=== PATIENT | female | born 1990 | race Caucasian/White ===

== ENCOUNTER 2022-05-23 11:39 | Outpatient (CLI) | payer OTHER, SELFPAY ==
[2022-05-23 18:10] LABS: Vitamin D 25 Hydroxy* 30 ng/mL (30-80)
== END 2022-05-23 11:40 | disposition home or self-care (01) ==
PROVIDERS: Visit Provider Obstetrics & Gynecology
DX: R53.83 Other fatigue (principal); N91.2 Amenorrhea, unspecified
CPT/HCPCS: 82306; 82652; 84443

== ENCOUNTER 2022-11-13 15:00 | Outpatient (CLI) | payer OTHER, SELFPAY | END 2022-11-13 15:01 | disposition home or self-care (01) | LOC: NFLDREF 11-17 21:57 | PROVIDERS: Visit Provider Dermatology | DX: M32.9 Systemic lupus erythematosus, unspecified (principal) | CPT/HCPCS: 86039; 86225 ==

== ENCOUNTER 2023-02-16 10:33 | Outpatient (CLI) | payer OTHER, SELFPAY ==
--- NOTE | 2023-02-16 10:45 | CRLHL7_ITS ---
For Patients: As a result of the Cures Act, medical imaging exams and procedure reports are released immediately into your electronic medical record. You may view this report before your referring provider. If you have questions, please contact your health care provider. RIGHT DIAGNOSTIC MAMMOGRAM WITH COMPUTER-AIDED DETECTION AND TOMOSYNTHESIS RIGHT BREAST ULTRASOUND CLINICAL HISTORY: RIGHT breast pain. COMPARISON: None. TECHNIQUE: Digital RIGHT mammogram in 2 projections. Computer-aided detection and tomosynthesis were used. Real-time ultrasound imaging of RIGHT breast with imaging documentation. BREAST COMPOSITION: There are scattered areas of fibroglandular density FINDINGS: 3D CC/MLO RIGHT breast mammogram images submitted. No suspicious masses or architectural distortion. No adenopathy or suspicious calcifications. Targeted RIGHT breast ultrasound performed in the periareolar regions secondary to discharged. Normal tissues are present. Similarly, targeted ultrasound performed at 4, 5 and 6 o`clock RIGHT breast 4 cm from the nipple in the area of pain. Normal tissues are present. No fibrocystic changes or masses. IMPRESSION: No evidence of malignancy or fibrocystic change. Negative RIGHT breast mammogram and targeted RIGHT breast ultrasound. RECOMMENDATIONS: Clinical follow-up. Age appropriate screening mammography. BI-RADS Category 2: Benign Results and recommendations discussed with the patient. A lay language report of this examination will be provided to the patient. Dictated by: Gerhard Sosa MD @02/16/2023 12:27:49 PM/amrita NATALIE/Dictated by: Gerhard Sosa MD @ 02/16/2023 12:30:00 PM (Electronically Signed)
--- NOTE | 2023-02-16 11:15 | CRLHL7_ITS ---
For Patients: As a result of the Century Cures Act, medical imaging exams and procedure reports are released immediately into your electronic medical record. You may view this report before your referring provider. If you have questions, please contact your health care provider. PLEASE SEE RIGHT DIAGNOSTIC MAMMOGRAM OF SAME DAY. CRL:amrita NATALIE/Dictated by: Gerhard Sosa MD @ 02/16/2023 12:27:00 PM (Electronically Signed)
== END 2023-02-16 10:34 | disposition home or self-care (01) ==
LOC: MAMMO 10:33
PROVIDERS: Visit Provider Obstetrics & Gynecology
DX: N64.4 Mastodynia (principal)
CPT/HCPCS: 76642; 77065; G0279

== ENCOUNTER 2024-01-18 19:14 | Outpatient (CLI) | payer OTHER, SELFPAY | END 2024-01-18 19:15 | disposition home or self-care (01) | LOC: NFLDREF 01-21 07:41 | PROVIDERS: Visit Provider Physician Assistant | DX: N39.0 Urinary tract infection, site not specified (principal) | CPT/HCPCS: 87086; 87186 ==

== ENCOUNTER 2024-04-15 10:07 | Outpatient (CLI) | payer OTHER, SELFPAY ==
[2024-04-15 14:52] LABS: Chlamydia DNA Amplified* NOT DETECTED (No Detected); GC DNA Amplified* NOT DETECTED (No Detected)
== END 2024-04-15 10:08 | disposition home or self-care (01) ==
PROVIDERS: Visit Provider Obstetrics & Gynecology
DX: Z34.91 Encounter for supervision of normal pregnancy, unspecified, first trimester (principal); Z3A.09 9 weeks gestation of pregnancy
CPT/HCPCS: 76817; 82565; 82570; 84156; 84450; 84460; 84550; 86235; 86592; 86703; 86704; 86706; 86762; 86787; 86803; 86850; 86900; 86901; 87086; 87340; 87491; 87591

== ENCOUNTER 2024-04-19 01:00 | Outpatient (CLI) | payer OTHER, SELFPAY | END 2024-04-19 01:01 | disposition home or self-care (01) | LOC: NFLDREF 04-23 06:29 | PROVIDERS: Visit Provider Obstetrics & Gynecology | DX: Z34.01 Encounter for supervision of normal first pregnancy, first trimester (principal) | CPT/HCPCS: 82570; 84156 ==

== ENCOUNTER 2024-06-15 08:59 | Outpatient (CLI) | payer OTHER, SELFPAY | END 2024-06-15 09:00 | disposition home or self-care (01) | LOC: US 09:00 | PROVIDERS: Visit Provider Obstetrics & Gynecology | DX: O09.522 Supervision of elderly multigravida, second trimester (principal); Z3A.18 18 weeks gestation of pregnancy | CPT/HCPCS: 76811 ==

== ENCOUNTER 2024-07-08 12:44 | Outpatient (CLI) | payer OTHER, SELFPAY | END 2024-07-08 12:45 | disposition home or self-care (01) | PROVIDERS: Visit Provider Internal Medicine Nephrology | DX: R80.9 Proteinuria, unspecified (principal) | CPT/HCPCS: 82570; 84156 ==

== ENCOUNTER 2024-08-26 10:14 | Outpatient (CLI) | payer BC, SELFPAY | END 2024-08-26 10:15 | disposition home or self-care (01) | PROVIDERS: Visit Provider Obstetrics & Gynecology | DX: O26.893 Other specified pregnancy related conditions, third trimester (principal); R80.9 Proteinuria, unspecified; Z67.91 Unspecified blood type, Rh negative; Z87.59 Personal history of other complications of pregnancy, childbirth and the puerperium; Z3A.28 28 weeks gestation of pregnancy | CPT/HCPCS: 82565; 82570; 84156; 84450; 84460; 84520; 86592; 86850; J2791 ==

== ENCOUNTER 2024-08-29 17:28 | Outpatient (CLI) | payer BC, SELFPAY ==
--- NOTE | 2024-08-29 17:30 | CRLHL7_ITS ---
For Patients: As a result of the Century Cures Act, medical imaging exams and procedure reports are released immediately into your electronic medical record. You may view this report before your referring provider. If you have questions, please contact your health care provider. INDICATION: Right upper quadrant abdomen pain. TECHNIQUE: Ultrasound abdomen limited. Sonographic images of the right upper quadrant were obtained using holguin-scale and color Doppler images. COMPARISON: None. FINDINGS: Liver: Normal in size and echotexture. No suspicious masses. No intrahepatic biliary dilatation. Gallbladder: No stones or sludge. Normal wall thickness. No pericholecystic fluid. Common bile duct: 3 mm. Pancreas: Unremarkable. Right kidney: Normal in size. Normal echotexture and cortex. No suspicious masses, stones, or hydronephrosis. Vasculature: Proximal abdominal aorta and IVC are unremarkable. IMPRESSION: Unremarkable right upper quadrant ultrasound. Dictated by Scar Goodwin MD @ 08/30/2024 7:34:09 AM (Electronically Signed)
== END 2024-08-29 17:29 | disposition home or self-care (01) ==
PROVIDERS: Visit Provider Obstetrics & Gynecology
DX: R10.11 Right upper quadrant pain (principal)
CPT/HCPCS: 76705

== ENCOUNTER 2024-08-30 09:20 | Outpatient (CLI) | payer BC, SELFPAY | END 2024-08-30 09:21 | disposition home or self-care (01) | LOC: NFLDREF 08-31 02:28 | PROVIDERS: Visit Provider Obstetrics & Gynecology | DX: R80.9 Proteinuria, unspecified (principal) | CPT/HCPCS: 82570; 84156 ==

== ENCOUNTER 2024-09-19 09:05 | Outpatient (CLI) | payer BC, SELFPAY ==
--- NOTE | 2024-09-19 09:15 | CRLHL7_ITS ---
For Patients: As a result of the Century Cures Act, medical imaging exams and procedure reports are released immediately into your electronic medical record. You may view this report before your referring provider. If you have questions, please contact your health care provider. OB ULTRASOUND FOLLOWUP LIMITED, 09/19/2024 CLINICAL HISTORY: Obesity. COMPARISON: 06/15/2024. TECHNIQUE: Transabdominal OB ultrasound. Real time holguin scale imaging of the fetus was performed. FINDINGS: CHINTAN by LMP: 11/13/2024. GA: 32 weeks 1 day. Gestation: Single. Cervix: Not visualized. Positioning: Vertex. Amniotic Fluid: 5.8 cm. Placenta: TA. Placenta Position: Anterior. Dopplers: Heart Rate: 135 bpm. Biometry: BPD: 8.7 cm, 33 weeks 5 days. >97% HC: 31.0 cm, 34 weeks 4 days. 78% AC: 30.0 cm, 34 weeks 0 days. 92% FL: 6.2 cm, 32 weeks 2 days. 39% EFW: 2241 grams, 4 lb 15 oz. Age by this US: 34 weeks 0 days. CHINTAN by this US: 10/31/2024. Percentile by CHINTAN: 85% IMPRESSION: 1. Sonographic gestational age 34 weeks 0 days and sonographic due date 10/31/2024. Sonographic age is 13 days ahead of the clinical age. 2. Estimated weight 85th percentile. Abdominal circumference 82nd percentile. BPD greater than 97th percentile. Gerhard Sosa M.D. Diagnostic Radiologist [email or web address] Transcribed: 3:46 pm DW/Dictated by: Gerhard Sosa MD @ 09/19/2024 3:20:00 PM (Electronically Signed)
== END 2024-09-19 09:06 | disposition home or self-care (01) ==
LOC: US 09:06
PROVIDERS: Visit Provider Obstetrics & Gynecology
DX: O99.213 Obesity complicating pregnancy, third trimester (principal); O36.63X0 Maternal care for excessive fetal growth, third trimester, not applicable or unspecified; Z3A.34 34 weeks gestation of pregnancy
CPT/HCPCS: 76816

== ENCOUNTER 2024-10-04 11:06 | Outpatient (CLI) | payer BC, SELFPAY | END 2024-10-04 11:07 | disposition home or self-care (01) | PROVIDERS: Visit Provider Obstetrics & Gynecology | DX: Z34.93 Encounter for supervision of normal pregnancy, unspecified, third trimester (principal); Z3A.34 34 weeks gestation of pregnancy | CPT/HCPCS: 82565; 82570; 84156; 84450; 84460 ==

== ENCOUNTER 2024-10-13 08:09 | Outpatient (CLI) | payer BC, SELFPAY ==
--- NOTE | 2024-10-13 08:15 | CRLHL7_ITS ---
For Patients: As a result of the Century Cures Act, medical imaging exams and procedure reports are released immediately into your electronic medical record. You may view this report before your referring provider. If you have questions, please contact your health care provider. OB ULTRASOUND BIOPHYSICAL PROFILE LMP: 02/06/2025. CHINTAN by LMP: 11/13/2024. GA: 35 w, 4 d. Single. Comparison: 09/19/2024, 06/15/2024. INDICATION: Preclampsia. TECHNIQUE: Real time holguin scale imaging of the fetus was performed. Transabdominal. CERVIX: Not visible. POSITIONING: Vertex. AMNIOTIC FLUID: 3.2 cm. SDP (N: greater than 2 x 1 cm) BIOPHYSICAL PROFILE: Total score: 2. Gross body movements: 2. tone: 2. Respiratory activity: 2. Amniotic fluid: 3.2. (SDP N: greater than 2 x 1 cm) PLACENTA: PLACENTA POSITION: Anterior. DOPPLER: heart rate: 142 bpm. BIOMETRY: BPD: 9.5 cm. 38 w, 4 d, >97 percent. HC: 33.3 cm. 38 w, 0 d, 77 percent. AC: 33.7 cm. 37 w, 4 d, 96 percent. FL: 7.0 cm. 35 w, 0 d, 49 percent. FL/AC ratio: 20.7 percent. HC/AC ratio: 1.0. EFW: 3179 g. Weight: 7 lbs, 0 oz. age by this US: 37 w, 3 d. CHINTAN by this US: 10/31/2024. Percentile by CHINTAN: 90.8 percent. IMPRESSION: 1. Normal biophysical profile 03/03. 2. Sonographic gestational age 37 weeks 3 days and sonographic due date 10/31/2024. Sonographic age 13 days ahead of the clinical age. 3. Estimated weight 91st percentile. Abdominal circumference 96th percentile. Biparietal diameter greater than 97th percentile. Gerhard Sosa M.D. Diagnostic Radiologist [email or web address] MITRA/tram JR/Dictated by: Gerhard Sosa MD @ 10/13/2024 9:26:00 AM (Electronically Signed)
== END 2024-10-13 08:10 | disposition home or self-care (01) ==
LOC: US 08:10
PROVIDERS: Visit Provider Obstetrics & Gynecology
DX: O14.93 Unspecified pre-eclampsia, third trimester (principal); O36.63X0 Maternal care for excessive fetal growth, third trimester, not applicable or unspecified; Z3A.35 35 weeks gestation of pregnancy; Z3A.37 37 weeks gestation of pregnancy
CPT/HCPCS: 76816; 76819; 82565; 84450; 84460; 84520

== ENCOUNTER 2024-10-13 09:47 | Outpatient (CLI) | payer BC, SELFPAY ==
[2024-10-14 10:59] LABS: Strep B DNA Probe Negative (Negative)
[2024-10-14 11:07] LABS: Strep B Susceptibility Needed? No
== END 2024-10-13 09:48 | disposition home or self-care (01) ==
LOC: NFLDREF 09:47
PROVIDERS: Visit Provider Obstetrics & Gynecology
DX: Z34.93 Encounter for supervision of normal pregnancy, unspecified, third trimester (principal); Z3A.35 35 weeks gestation of pregnancy
CPT/HCPCS: 82565; 84450; 84460; 84520; 87081; 87653

== ENCOUNTER 2024-10-20 13:33 | Outpatient (CLI) | payer BC, SELFPAY ==
--- NOTE | 2024-10-20 13:45 | CRLHL7_ITS ---
For Patients: As a result of the Century Cures Act, medical imaging exams and procedure reports are released immediately into your electronic medical record. You may view this report before your referring provider. If you have questions, please contact your health care provider. INDICATION: Preeclampsia TECHNIQUE: Ultrasound OB pelvis transabdominal. Real-time holguin-scale imaging of the fetus was performed with color Doppler and spectral Doppler analysis of the umbilical artery without stress testing. COMPARISON: 10/13/2024 FINDINGS: Sonographic imaging demonstrates a single living intrauterine gestation. Fetus demonstrates a regular cardiac rate of 131 beats per minute. Fetus has a cephalic orientation. The placenta lies anterior. Amniotic fluid volume appears normal with a MVP of 4.0 cm. breathing movements, motion, and tone were all observed. IMPRESSION: Single viable intrauterine with a biophysical profile 03/03. Dictated by Viktor Hollingsworth MD @ 10/20/2024 2:30:47 PM (Electronically Signed)
== END 2024-10-20 13:34 | disposition home or self-care (01) ==
LOC: US 13:33
PROVIDERS: Visit Provider Obstetrics & Gynecology
DX: O14.93 Unspecified pre-eclampsia, third trimester (principal)
CPT/HCPCS: 76819; 82565; 84450; 84460

== ENCOUNTER 2024-10-23 07:46 | Inpatient (IN) | payer BC, SELFPAY ==
[2024-10-23] VITALS (18 sets, daily range): BP systolic 108–127; BP diastolic 60–80; PULSE 71–83; RESP 14–16; TEMP 36.6–36.9; O2SAT 75–99; BMI 44.3
[2024-10-23] MEDS: LACTATED RINGERS 1000 ML 1,000 ML 500 ML IV (08:15)
[2024-10-23] MEDS: LACTATED RINGERS 1000 ML 1,000 ML 1200 ML IV (08:15)
[2024-10-23 08:34] LABS: Basophils Absolute Auto 0.03 K/uL (0.00-0.30); Basophils Percent Auto 0.3 % (0.0-3.0); Eosinophils Absolute Auto 0.11 K/uL (0.00-0.50); Eosinophils Percent Auto 1.2 % (0.0-7.0); Hematocrit 35.8 % (33.0-51.0); Immature Granulocytes Abs Auto 0.09 K/uL (0.00-0.30); Lymphocytes Absolute Auto 1.82 K/uL (0.90-2.90); Lymphocytes Percent Auto 20.5 % (20-44); Mean Corpuscular HGB Conc 34 gm/dL (32-36); Mean Corpuscular Hemoglobin 28 pg (26-34); Mean Corpuscular Volume 83 fL (80-100); Monocytes Percent Auto 8.7 % (0.0-11.0); Neutrophils Absolute Auto 6.06 K/uL (1.7-7.0); Neutrophils Percent Auto 68.3 % (42.0-72.0); Platelet Count* 168 K/uL (140-440); RDW Coefficient of Variation % 15.3 % (11.5-15.5); White Blood Count* 8.88 K/uL (4.50-11.00)
[2024-10-23 08:36] LABS: Slide Review Reflex No
[2024-10-23 08:46] LABS: Alanine Aminotransferase* 23 U/L (4-35); Aspartate Amino Transferase* 34 U/L (12-35); Blood Urea Nitrogen* 7 mg/dL (5-24); Creatinine* 0.5 mg/dL (0.5-1.5); Est. Creatinine Clearance* 135.61; Estimated Glomerular Filt Rate 125 ml/min
--- NOTE | 2024-10-23 09:35 | P.LDBA_ITS ---
Subjective History of Present Illness Time Seen by Provider: 08:30 Date Seen: 10/23/24 Narrative: Patient is being admitted to Labor and Delivery for scheduled delivery for pre-eclampsia without severe features. She is a 34 year old at 37.0 weeks gestation. Her full history and physical was dictated by Dr. SEGUNDO on 10/13/24. Please see this for details. Denies Ctx, LOF, vaginal bleeding or abnormal vaginal discharge. Specific Issues/Plans G 2 P 1-0-0-1 Partner: Mickey Hidalgo Son: Awais Johnso or Awais Baby: Boy H&P: CGM 10/13/24 #Preeclampsia w/o severe features * 10/06/2024: Called triage to report 2 BP's 143/72, 140/70, otherwise 130s/80s. Had previous Bp's on 10/03/24 at home 142-148/72-82. No SALCEDO, visual disturbance, or RUQ. Trace edema. * 10/04/2024: hgb 11.1, plts 174, AST 23, ALT 17, Creat 0.5. Urine P/C 0.89 (Baseline urine P/C: 0.13) * testing sheet completed on 10/06/24: twice weekly testing bpp alternating w/ NST. * Completed a new surgery request to move her RLTCS to 10/23/24 @ 37w0d: it is a Thursday with Dr. Goodson. # Advanced maternal age * Level 2 US: Normal anatomy * Considering NIPT: low risk # BMI 38.4 at 1st visit * Hemoglobin A1c 5.4% # Previous elective for suspected macrosomia at 38 weeks, 2 days gestation. 9 lb, 3 oz * Plans for repeat # Preeclampsia at 38 weeks, 2 days gestation in her 1st . Progressed to severe preeclampsia . * Baseline labs: Entirely normal, urine protein/creatinine ratio 0.13 on 04/15/2024 * 306 mg of protein on 24 hour urine at 10 weeks' gestation (04/20) * Baby aspirin beginning 12 weeks, increase to twice daily per MFM * Nephrology visit 06/14/2024: Repeat 24 hour urine to be collected June, ordered by Nephrology. She is to monitor blood pressure at home on a weekly basis, with goals less than 140/90. * Repeat 24 hour urine 08/30: 506 mg. # Blood type O negative. * Mickey Hidalgo 02/20/1987 interested in blood type testing; consent given 04/15 * Rh expectant partner ordered 06/30/24: Rh+ * Received Rhogam 08/26/24 # History of macrosomia. No hx of diabetes; tested X 3 last # Butterfly rash, thought secondary to photosensitivity by chemical cell changer. MAX negative. * Treated with hydroxychloroquine * SSA and SSB antibodies tested 04/15: negative #Persistent RUQ abdominal pain Abdominal US ordered 08/26/24 #Anemia-resolved 10.8mg/dL at 28 weeks Add iron supplements re evaluate at 34 weeks 34wk hgb: 11.2 Imagin06/15/2024: Level 2. Anterior placenta without previa, three-vessel cord, SDP 5.1, EFW 91.9%, AC 89.7%, normal anatomy. 09/19/24: Vtx. SDP 5.8cm. BPD >97%, HC 78%, AC 92%, FL 39%, EFW 85% 10/13/24: Vertex presentation, single deepest pocket of amniotic fluid 3.2 cm, BPD: More than the 97th percentile, HC: 77th percentile, AC: 96 percentile, FL: 49th percentile. EFW: 90.8 percentile. BPP 03/03. Vaccinations: COVID: 05/06/24 Flu: 05/06/24 Tdap: 09/13/23 RSV: n/a RHOGAM: given 08/26/24 32 week mental health: 09/13 34 week HGB: 11.2 36 week GBS: Last pap: Negative for intraepithelial lesion, HPV 05/25/20 OB - Problem Based A/P Additional Plan (1) Pre-eclampsia during in third trimester, antepartum: Status: Acute (2) Advanced maternal age (AMA) in : Status: Acute (3) Obesity affecting : Status: Acute (4) BMI 40.0-44.9, adult: Status: Acute Plan CS Consent The patient was consented for section and blood. She is having a delivery for the indication of: Preeclampsia without severe features. Previous delivery x1 She understands that the four main categories of risk include pain, bleeding, infection, and damage to surrounding structures. Intraoperative pain will be manage with spinal anesthesia or epidural anesthesia. If that those are not effective or not appropriate for the clinical situation, general anesthesia will be administered. Immediately postop, TAP block will be performed. Throughout her recovery course, she will have on PO pain medications such as ibuprofen, Tylenol, and oxycodone. Regarding infection, she understands that we will be delivering appropriate antibiotics, however that the risk of infection following section still is approximately 5-7%. She understands that though the risk is very low that there is always a risk of damage to the bladder, uterus, ovaries, fallopian tubes, bowels, ureters, or even the fetus (0.1-0.3%). She understands that most injuries can be addressed at the time of surgery, however, such an injury may require additional surgeries to fix. She understands that a section carries a risk of bleeding (1-5% risk of hemorrhage), and that while this bleeding can be addressed with multiple medical and surgical modalities (including hysterectomy), that there is the possibility of needing a blood transfusion (0.5-3%). She understands that a section does increase risks for future pregnancies and deliveries including, but not limited to, the risk of uterine rupture or placenta accreta. Lastly, VTE after delivery rate is around 0.1-0.4%. Will decrease this risk with SCD use, early ambulation, and thromboprophylaxis medication if needed. We also reviewed postoperative care, recovery, and restrictions. All questions answered to patient's satisfaction and the best of my abilities. Consent form signed and will proceed with delivery via section. Hgb/plt today: 12.0/168 - T&S/antibody: O negative/positive. Antibody identification is pending OB Exam Physical Exam Narrative: Physical exam: General: No acute distress Psych: Alert and oriented x3, full affect HEENT: Normocephalic, atraumatic Lungs: Unlabored breathing Neuro: No focal deficit. Mentating appropriately Abdominal exam: Appropriately gravid. Soft, nontender, nondistended. INCISION: Well-healed Pfannenstiel incision Pelvic exam: Deferred
[2024-10-23] MEDS: CEFAZOLIN 1 GM inj 3 GM IVP (09:41)
[2024-10-23] MEDS: miSOPROStoL 800 MCG/4 TABLET PR (10:50)
--- NOTE | 2024-10-23 11:14 | P.ANES_ITS ---
Anesthesia Charges Start Date/Time Anesthesia Start Date: 10/23/24 Anesthesia Start Time: 09:08 Stop Date/Time Anesthesia Stop Date: 10/23/24 Anesthesia Stop Time: 11:10 Coding CPT Codes CPT Codes: ANESTH CS DELIVERY - 56269 ([id number]) QZ - COMMUNITY LIVING INSTRUCTOR SVC W/O CRIMINAL JUSTICE TEACHER BY , P3 - PATIENT W/SEVERE SYS DISEASE
--- NOTE | 2024-10-23 11:14 | W.ANESCHARGE ---
Anesthesia Charges Start Date/Time Anesthesia Start Date: 10/23/24 Anesthesia Start Time: 09:08 Stop Date/Time Anesthesia Stop Date: 10/23/24 Anesthesia Stop Time: 11:10 Coding CPT Codes CPT Codes: ANESTH CS DELIVERY - 49317 ([id number]) QZ - FLOORMAN SVC W/O MANUSCRIPT READER BY , P3 - PATIENT W/SEVERE SYS DISEASE
--- NOTE | 2024-10-23 11:15 | W.PM.NB ---
Nerve Block Nerve Block Time Seen by Provider: 11:00 Date Seen: 10/23/24 Type of block requested by surgeon for post-operative analgesia: TAP Side: bilateral Time out performed: Yes Verification of patient name: Yes Verification of date of : Yes Site marking: site marked Name of person performing procedure: mantyl Continuous monitoring Was continuous monitoring of O2 sat, B/P, emergency spill response technician, recorded every 15 minutes?: Yes Procedure Checklist: sterile prep, needles and gloves Ultrasound guided. Images saved: Yes Medications given in 5ml increments after negative aspiration: Exparel mL: 10 and Ropivicaine %: 0.5 mL: 30 Patient tolerated procedure well: Yes Block Charges Block Charge (with Pro Fee): TAP Bilateral Use of Ultrasound Machine for Block: Yes- US Guidance/pain block
--- NOTE | 2024-10-23 12:12 | PM.OBPRCCS ---
Procedure Time Seen by Provider: 10:00 Date of procedure: 10/23/24 Procedure Done: Global Will [facility] bill your pro fee for this procedure?: Yes Blood Loss Measurement Type: QBL (794 cc) Bakri Used: No IV fluids (mL): 1,900 Urine Output (mL): 100 Urine Output Comment: Clear Surgeon: Malka Goodson MD Finance Controller: Armida Payne MD Anesthesia Type: Spinal Procedure Description: DELIVERY BY SECTION Date of Service: 10/23/24 Delivery time: 0949 Summary: Admitted for scheduled delivery at 37.0 weeks due to pre-eclampsia without severe feature, repeat lower uterine transverse section, Pfannenstiel, Closed with sutures Findings: Minimal filmy adhesions. Normal uterus, bilateral ovaries and tubes 9/9 Weight 3795 g. Primary Indication: 1. Preeclampsia without severe features 2. Previous delivery x1 3. Declined TOLAC Procedures: 1. Repeat Lower uterine transverse section Specimens Removed: Placenta Report: Prophylactic antibiotic, 3 g of Ancef was given before patient was taken to OR. After arrival to the operating room patient was placed in the supine position with left lateral tilt after administration of spinal anesthesia. Laparotomy A pfannenstiel incision was made through the anterior abdominal wall with #10 scalpel approximately 2 cm above the pubic symphysis. The incision was extended sharply with the #10 scalpel through the subcutaneous tissue to the level of fascia. The fascia was entered sharply with a #10 scalpel (Pfannenstiel) in the midline and extended in semi-elliptical fashion with Tukr scissor. The underlying muscles were dissected off the overlying fascia by grasping the superior aspect of fascia with two david clamps and blunt dissection was used along the midline. The fascia was further from rectus muscle with Turk scissor and/or cautery. In similar fashion, the lower aspect of fascia was also grasped with two David clamps and both blunt and sharp dissection was used to separate fascia from rectus muscle. The rectus muscles were in the midline bluntly with digits. The peritoneum was then entered bluntly. The peritoneal incision was then extended superiorly and inferiorly under direct visualization with care being taken to avoid bladder and bowel. Minimal filmy adhesions. The peritoneal incision was enlarged bluntly by lateral traction from the surgeon's and certified teacher assistant's hand. Almas retractor was inserted into the abdomen. Delivery A bladder flap was developed by grasping with Indian forcep and enter with Metzenbaun scissor. Then sharp and blunt dissection with Metzenbaum scissor and fingers were performed. A low transverse hysterotomy was made then with #10 scalpel and extended laterally and cephalad with fingers in a low transverse fashion with Manu Irizarry technique with care being taken to avoid injury to the fetus. The amniotic cavity (membrane) was then entered with spontaneous rupture of membrane, and the amniotic fluid was noted to be clear, fetus was delivered cephalic. With delivery of the baby, no extension was noted. Placenta was delivered spontaneously with steady traction on cord and manual separation of placenta from uterine wall. Closure Uterine cavity was cleaned after placental delivery with lap sponge x 2. The hysterotomy was closed in two layers with stitches using 0 vicryl with continuous locking stitches and 0 monocryl in a continuous non locking manner. 3 Figure of 8 placed at the left lower uterine angle. One O'leary stitch applied there as well. Hemostasis was achieved as needed with electrocautery. The ovaries/tubes/uterine surface were evaluated. They were found to be normal. Almas retractor removed and hemostasis was confirmed again. Glory applied on hysterotomy. One [id number]-[id number] was applied on left rectus muscle. Fascia was closed with running stitches using 0 PDS. Subcutaneous layer was irrigated. Hemostasis was checked for and found to be adequate. The subcutaneous layer was closed with running 2-0 vicryl sutures. The skin was closed with 3-0 monocryl subcuticular sutures . The incision was cleaned, steri strip applied. Silver dressing placed and and the procedure considered terminate at this time. Intraoperative Complications: Excess bleeding due to initial uterine atony QBL: 794 cc Uterotonics/hemostatic agents: 40u of pitocin, 5u of pitocin bolused, TXAx2, Glory x1 Disposition: The patient tolerated the procedure well. She was recovered in Obstetric PACU for close monitoring in stable condition, with a contracted uterus and normal transvaginal bleeding. The infant was sent to mother?s bedside. The placenta was sent to pathology due to pre-eclampsia. Debrief with OR team performed and specimen reviewed at the conclusion of the procedure. Buckner total score - 1 minute: 9 total score - 5 minute: 9
[2024-10-23] MEDS: ACETAMINOPHEN 500 MG TABLET 1000 MG PO ×2 (13:07→19:15)
[2024-10-23] MEDS: KETOROLAC 30 MG/ML inj IVP ×2 (15:42→22:02)
[2024-10-23] MEDS: ENOXAPARIN 40 MG/0.4 ML INJ SUBCUT (22:02)
[2024-10-24 01:20] VITALS: BP 115/75; PULSE 84; RESP 16; TEMP 36.7; O2SAT 95
[2024-10-24] MEDS: ACETAMINOPHEN 500 MG TABLET 1000 MG PO ×2 (01:42→12:45)
[2024-10-24 03:58] VITALS: BP 109/71; PULSE 79; RESP 16; TEMP 36.6; O2SAT 96
[2024-10-24] MEDS: KETOROLAC 30 MG/ML inj IVP ×2 (04:04→12:40)
[2024-10-24 04:35] LABS: Hematocrit 32.5 % (33.0-51.0); Hemoglobin* 10.7 gm/dL (12.0-16.0); Mean Corpuscular HGB Conc 33 gm/dL (32-36); Mean Corpuscular Hemoglobin 28 pg (26-34); Mean Corpuscular Volume 85 fL (80-100); Platelet Count* 175 K/uL (140-440); Red Blood Count 3.84 m/uL (4.00-5.20); White Blood Count* 14.27 K/uL (4.50-11.00)
[2024-10-24 04:39] LABS: Slide Review Reflex No
[2024-10-24 04:52] LABS: Alanine Aminotransferase* 21 U/L (4-35); Aspartate Amino Transferase* 41 U/L (12-35); Blood Urea Nitrogen* 10 mg/dL (5-24); Creatinine* 0.6 mg/dL (0.5-1.5); Est. Creatinine Clearance* 113.01; Estimated Glomerular Filt Rate 120 ml/min
--- NOTE | 2024-10-24 07:34 | P.OBPN_ITS ---
OB - PN:Subj Subjective Date Seen: 10/24/24 Narrative: Tina is a 34 y.o. who was admitted to L & D for repeat C/S due to preeclampsia at 37.0 weeks.? She had an uncomplicated repeat .? ? The patient feels well.? The pain is well controlled with current medications.? She has no new complaints.? She is breast feeding and reports things are going well but her baby is still having some low blood sugar readings. Pediatrics to round and make plan of care for .? the patient has done well.? Vitals have been stable.? She has remained afebrile.? Has a good appetite, is tolerating a general diet.? She is voiding without difficulty.? She is passing gas and has not had a bowel movement.? She is ambulating and denies any dizziness.? Has Small amount of rubra lochia.? OB - PN: Obj Exam Physical Exam: Vital signs: Temp Pulse Resp BP Pulse Ox O2 Del Method 97.8 F 79 16 109/71 96 Room Air 10/24/24 03:58 10/24/24 03:58 10/24/24 03:58 10/24/24 03:58 10/24/24 03:58 10/24/24 03:58 Narrative: GENERAL APPEARANCE:? normal affect, alert, no distress MOOD:? appropriate CHEST:? clear to auscultation HEART:? regular rate and rhythm ABDOMEN:? soft, non-tender the uterine fundus is firm At Umbilicus, Midline and is appropriate for the stage of recovery. PERINEUM: intact EXTREMITIES:? normal and trace edema Incision: sliver dressing clean dry and intact OB - PN: Obj Data Labs Labs: Laboratory Results - last 24 hr 10/23/24 10/24/24 08:12 04:10 WBC 8.88 14.27 H RBC 4.30 3.84 L Hgb 12.0 10.7 L Hct 35.8 32.5 L MCV 83 85 MCH 28 28 MCHC 34 33 RDW Coeff of Sylvia 15.3 Plt Count 168 175 Neut % (Auto) 68.3 Lymph % (Auto) 20.5 [place] % (Auto) 8.7 Eos % (Auto) 1.2 Baso % (Auto) 0.3 Neut # (Auto) 6.06 Lymph # (Auto) 1.82 [place] # (Auto) 0.80 Eos # (Auto) 0.11 Baso # (Auto) 0.03 Abs Immat Gran (auto) 0.09 Imm/Tot Granulo (auto) 1.0 BUN 7 10 Creatinine 0.5 0.6 Estimated Creat Clear 135.61 113.01 Estimated GFR 125 120 AST 34 41 H ALT 23 21 Blood Type O Negative Antibody Screen POSITIVE OB - PN: A/P Delivery Assessment and Plan (1) care following delivery: Status: Acute (2) Lactating mother: Status: Acute (3) Status post delivery: Status: Acute (4) Pre-eclampsia during in third trimester, antepartum: Status: Acute (5) Advanced maternal age (AMA) in : Status: Acute (6) Obesity affecting : Status: Acute (7) BMI 40.0-44.9, adult: Status: Acute Plan day: 1 Plan: routine care Comments: Assessment/Plan?G 2 P 2 status post uncomplicated repeat .? ?? 1.? Continue route PP cares? 2.? .? May see if desired? 3.? Anticipate discharge home Thursday10/26/24 4.? Acute anemia.? Iron supplement ordered 5. Preeclampsia with normal blood pressures at this time. Consider repeat labs in AM. ?
[2024-10-24] MEDS: FERROUS SULFATE 325 MG TABLET PO (07:57)
[2024-10-24] MEDS: DOCUSATE SODIUM 100 MG CAPSULE PO (07:57)
[2024-10-24 07:58] VITALS: BP 119/77; PULSE 87; RESP 17; TEMP 36.7; O2SAT 98
[2024-10-24 09:14] LABS: Hematocrit 33.7 % (33.0-51.0); Hemoglobin* 11.1 gm/dL (12.0-16.0); Mean Corpuscular HGB Conc 33 gm/dL (32-36); Mean Corpuscular Hemoglobin 28 pg (26-34); Mean Corpuscular Volume 85 fL (80-100); Platelet Count* 163 K/uL (140-440); Red Blood Count 3.96 m/uL (4.00-5.20); White Blood Count* 12.49 K/uL (4.50-11.00)
[2024-10-24 09:29] LABS: Alanine Aminotransferase* 23 U/L (4-35); Aspartate Amino Transferase* 45 U/L (12-35); Creatinine* 0.6 mg/dL (0.5-1.5); Est. Creatinine Clearance* 113.01; Estimated Glomerular Filt Rate 120 ml/min
[2024-10-24 09:42] LABS: Slide Review Reflex No
[2024-10-24] MEDS: ENOXAPARIN 40 MG/0.4 ML INJ SUBCUT (13:00)
[2024-10-24 13:01] VITALS: BP 133/77; PULSE 80; RESP 17; TEMP 36.7
[2024-10-24 16:10] VITALS: BP 113/74; PULSE 92; RESP 16; TEMP 36.6; O2SAT 98
[2024-10-24 20:12] VITALS: BP 122/74; PULSE 92; RESP 18; TEMP 36.8; O2SAT 99
[2024-10-24] MEDS: IBUPROFEN 600 MG TABLET PO (20:23)
[2024-10-24] MEDS: diphenhydrAMINE 25 MG CAPSULE 50 MG PO (20:50)
[2024-10-25] MEDS: ENOXAPARIN 40 MG/0.4 ML INJ SUBCUT ×2 (00:33→14:56)
[2024-10-25 00:35] VITALS: BP 127/80; PULSE 84; RESP 18; TEMP 36.9; O2SAT 99
[2024-10-25 03:44] VITALS: BP 121/81; PULSE 112; RESP 18; TEMP 36.8; O2SAT 98
[2024-10-25] MEDS: IBUPROFEN 600 MG TABLET PO ×3 (03:47→17:41)
[2024-10-25] MEDS: ACETAMINOPHEN 500 MG TABLET 1000 MG PO ×3 (03:50→16:27)
[2024-10-25 09:26] LABS: Alanine Aminotransferase* 21 U/L (4-35); Aspartate Amino Transferase* 37 U/L (12-35); Creatinine* 0.7 mg/dL (0.5-1.5); Est. Creatinine Clearance* 96.86; Estimated Glomerular Filt Rate 116 ml/min
[2024-10-25] MEDS: DOCUSATE SODIUM 100 MG CAPSULE PO (10:27)
[2024-10-25 10:32] VITALS: BP 132/82; PULSE 91; RESP 16; TEMP 36.7; O2SAT 98
[2024-10-25 10:53] LABS: Hematocrit 33.1 % (33.0-51.0); Hemoglobin* 10.7 gm/dL (12.0-16.0); Mean Corpuscular HGB Conc 32 gm/dL (32-36); Mean Corpuscular Hemoglobin 28 pg (26-34); Mean Corpuscular Volume 86 fL (80-100); Platelet Count* 175 K/uL (140-440); Red Blood Count 3.84 m/uL (4.00-5.20); White Blood Count* 10.43 K/uL (4.50-11.00)
[2024-10-25 10:56] LABS: Slide Review Reflex No
[2024-10-25 11:01] LABS: Blood Urea Nitrogen* 10 mg/dL (5-24)
--- NOTE | 2024-10-25 11:59 | PM.OBPNVD1 ---
OB - PN:Subj Subjective Date Seen: 10/25/24 Narrative: Tina is a 34 year old who was admitted for Repeat at 37w0d for pre-eclampsia without severe features and proceeded to have a ?. The patient feels well.? The pain is well controlled with current medications.? She has noted a very itchy abdomen since the . New onset of rash. She also had PUPPPS after her last .?Urinary output is adequate and she is voiding without difficulty.? Has a good appetite, is tolerating a general diet, is passing flatus, and has not had a bowel movement.? Has scant amount of rubra lochia.? She is ambulating well. She is and reports it is going well but is needing to supplement due to blood sugar issues for the baby. If baby is discharged this bernie, Tina would like to go home tonight. OB - PN: Obj Exam Physical Exam: Vital signs: Temp Pulse Resp BP Pulse Ox O2 Del Method 98.1 F 91 16 132/82 98 Room Air 10/25/24 10:32 10/25/24 10:32 10/25/24 10:32 10/25/24 10:32 10/25/24 10:32 10/25/24 10:32 Narrative: GENERAL APPEARANCE:? normal affect, alert, no distress MOOD:? appropriate CHEST:? clear to auscultation HEART:? regular rate and rhythm ABDOMEN:? soft, non-tender the uterine fundus is 1 fb below Umbilicus, Midline and is appropriate for the stage of recovery. Skin: Moderate fine papules dispersed over abdomen, back, hips. Not confined to stretch ortiz. PERINEUM:? deferred EXTREMITIES:? normal and moderate edema Incision: Silver dressing intact, with no discharge seen. Dressing is spongy as got much water on it during her shower. It has been reinforced. Silver dressing removed. Incision appears clean with minimal erythema of mid inferior of incision and to the right end. No discharge noted. Well approximated. OB - PN: Obj Data Labs Labs: Laboratory Results - last 24 hr 10/23/24 10/25/24 08:12 09:00 WBC 10.43 RBC 3.84 L Hgb 10.7 L Hct 33.1 MCV 86 MCH 28 MCHC 32 Plt Count 175 BUN 10 Creatinine 0.7 Estimated Creat Clear 96.86 Estimated GFR 116 AST 37 H ALT 21 Antibody Identification No Antibodies Found by [facility] OB - PN: A/P Delivery Assessment and Plan (1) care following delivery: Status: Acute (2) Lactating mother: Status: Acute (3) Status post delivery: Status: Acute (4) Pre-eclampsia during in third trimester, antepartum: Status: Acute (5) Advanced maternal age (AMA) in : Status: Acute (6) Obesity affecting : Status: Acute (7) BMI 40.0-44.9, adult: Status: Acute (8) Pruritic urticarial papules and plaques of : Status: Acute Plan Comments: PP day #2 Routine care May see as desired Anticipate discharge either this bernie or tomorrow depending on pediatric care. PUPPPS rash to be treated with hydrocortisone cream QID Silver dressing removed today due to amount of water absorbed from shower with permission from Dr Borja. Pre-e labs checked today and AST is improving. Other labs still normal. monitor incision for signs of infection
[2024-10-25 13:02] LABS: Rapid Plasma Reagin (RPR) Non Reactive (Non Reactive)
--- NOTE | 2024-10-25 15:46 | P.DS_ITS ---
DS: Providers Provider Date Seen: 10/25/24 Date of admission: 10/23/24 07:46 Primary care physician: Not a Local Provider Admitting Clinician: Malka Goodson MD Attending Physician on discharge: Yaritza NICOLAS Date of Discharge: 10/25/24 DS: Diagnosis Discharge Diagnosis (1) Status post delivery: Status: Acute (2) Lactating mother: Status: Acute (3) care following delivery: Status: Acute (4) Pruritic urticarial papules and plaques of : Status: Acute (5) BMI 40.0-44.9, adult: Status: Acute (6) Pre-eclampsia during in third trimester, antepartum: Status: Acute (7) Advanced maternal age (AMA) in : Status: Acute Exam Narrative: Exam Narrative: GENERAL APPEARANCE:? normal affect, alert, no distress See previous note today for remainder of exam Incision: No change in erythema from exam a few hours ago. Incision appears clean with minimal erythema of mid inferior of incision and to the right end. No discharge noted. Well approximated. Const: Vital Signs, click to edit/add: Vital Signs - 24 hr 10/24/24 16:10 10/24/24 20:12 10/25/24 00:35 Temperature 97.9 F 98.2 F 98.4 F Pulse Rate [Pulse Oximeter] 92 92 84 Respiratory Rate 16 18 18 Blood Pressure [Ri ght Arm] 113/74 122/74 127/80 Pulse Oximetry 98 99 99 Oxygen Delivery Me thod Room Air Room Air Room Air 10/25/24 03:44 10/25/24 10:32 Temperature 98.3 F 98.1 F Pulse Rate [Pulse Oximeter] 112 H 91 Respiratory Rate 18 16 Blood Pressure [Ri ght Arm] 121/81 132/82 Pulse Oximetry 98 98 Oxygen Delivery Me thod Room Air Room Air OB - DS: Summary Hospital Course Hospital Course: Tina is a 34 y.o. G 2 P 2002 who was admitted to [facility] for a repeat at 37w0d for preeclampsia without severe features..? She had a section that was uncomplicated. The patient feels well.? The pain is well controlled with current medications.? She has no new complaints.? She is breast feeding and reports things are going well. the patient has done well.? Vitals have been stable.? She has remained afebrile.? Has a good appetite, is tolerating a general diet.? She is voiding without difficulty.? She is passing gas and has not had a bowel movement.? She is ambulating and denies any dizziness.? Has small amount of rubra lochia. She is planning condoms/vas for prevention.? ?? Problems: none? ?? plan:? Discharge home with baby.? Follow up in 2-3days, 2 weeks and 6 weeks.? , may see if needed? Hgb 10.7. ? Pre-Ec;ampsia diagnosed, normotensive inpatient, elevated AST decreasing to 37 today. Labs WNL or stable with trending? Discharge home with BP cuff if does not already have one? Follow up in 2-3 days? Call for signs/symptoms of preeclampsia? Peripartum Data Infant delivery method: Repeat Section Laceration description: None Episiotomy description: None Procedures: Procedures Operation Date: 10/23/24 09:00 Actual Procedure Side Surgeon p Repeat Section Malka Goodson MD complications: none Infant Gender: Male Discharge Plan: Home Status at Discharge Overall status at discharge: patient is progressing back to baseline Time Spent with Patient Time attestation: Total time spent providing and/or coordinating discharge services: Time spent: Less than 30 minutes Discharge Plan Discharge Disposition: Home, Self-Care Date of Admission: 10/23/24 07:46 Attending Provider on Discharge: Elisa L [facility] [place] Primary Care Provider: Provider,Not a Local Condition: Stable Anticipated Discharge Date/Time: 10/25/24 18:00 Discharge Medications: New oxycodone 5 mg Tablet 5 - 10 mg PO Q4H PRN (Reason: Pain) Qty: 20 0RF hydrocortisone 1 % Cream 1 applic topical QID PRN (Reason: Rash) Qty: 0 0RF Continued magnesium oxide 250 mg magnesium tablet 250 mg PO QDAY DHA 200 mg capsule PO acetaminophen [Tylenol] 325 mg capsule 325 mg PO ONCE PRN docusate calcium 240 mg capsule 240 mg PO QDAY hydroxychloroquine 200 mg tablet 200 mg PO BID Qty: 60 0RF Discontinued aspirin [Aspirin Childrens] 81 mg tablet,chewable 81 mg PO QDAY fexofenadine 60 mg tablet 180 mg PO QDAY Unisom (doxylamine) 25 mg tablet 25 mg PO QHS PRN ferrous sulfate 27 mg iron tablet 25 mg PO .qod polyethylene glycol 3350 [Miralax] 17 gram/dose powder 4 g PO ONCE Discharge Orders: Discharge Order (Routine); Ordered 10/25/24 Ordered By: Elisa Owens Patient Education: OB High Blood Pressure DC, OB [place] [facility], OB Over the Counter Medication Information, OB /Breast Feeding Additional Instructions: Discharge instructions were reviewed with the patient including signs and symptoms of infection and home going medications Lifting Restrictions: 20 pounds for 6 weeks No not submerge incision under water X 2 weeks? Nothing vaginally for 6 weeks: no tampons or intercourse Do not drive while taking narcotic pain medication(s) Off Work or School for 6 weeks Symptoms to report to doctor: * Bleeding that saturates more than one pad per hour * Passing clots larger than the size of a golf ball * Pain not relieved by prescribed medication * Fever above 100.4 degrees Fahrenheit * A foul vaginal odor * Difficulty in emotions, mood, and functions * Thoughts of hurting yourself and/or * Painful, reddened area in your breast * Any drainage, redness, or tenderness in your IV/epidural site * Severe headache that doesn't improve after taking medications * Changes in vision, including temporary loss of vision, blurred vision, and/or light sensitivity * Upper abdominal pain (usually under ribs on the right side) * Decrease in urination or painful, frequent urinating * Chest pain * Shortness of breath * Tenderness or pain with redness and/swelling in the calf(s) of your leg [facility] for a BP check?10-27 or 10/28 Call with BP greater than or equal to 140/90 2-week visit: incision check, discuss feeding concerns, review control options and screen for anxiety/depression. 6-week visit for an annual exam. consultation services are available to all mothers and babies for the first year after delivery.? To make an appointment, please call [phone]. For pain control of incision, breast and pelvic pain, take 600 mg Ibuprofen every 6 hours as needed by mouth or 1000 mg acetaminophen (Tylenol) every 6 hours by mouth as needed. You can alternate these so you are taking something every 3 hours as needed. A heating pad can also be used for your abdomen or breasts. You may also take docusate sodium up to twice daily to soften your stools and help to prevent constipation. You may wean off of it when your stools return to normal.? Activity Level: Light activity Discharge Diet: Regular Follow Up Appointments: [facility] [Provider Group] Forms: [facility] Info Instructions
[2024-10-25 16:29] VITALS: BP 121/78
== END 2024-10-25 19:32 | disposition home or self-care (01) | DRG 540 ==
PROVIDERS: Advanced Practice Midwife; Midwife; Admitting Provider Obstetrics & Gynecology; Visit Provider Obstetrics & Gynecology
PROC: 10D00Z1 Extraction of Products of Conception, Low, Open Approach (ICD-10-PCS; CPT 59514; principal; 2024-10-23 09:00)
DX: O14.04 Mild to moderate pre-eclampsia, complicating childbirth (principal); O34.211 Maternal care for low transverse scar from previous cesarean delivery; O62.2 Other uterine inertia; O26.86 Pruritic urticarial papules and plaques of pregnancy (PUPPP); O99.214 Obesity complicating childbirth; E66.9 Obesity, unspecified; G89.18 Other acute postprocedural pain; O26.893 Other specified pregnancy related conditions, third trimester; Z67.41 Type O blood, Rh negative; Z3A.37 37 weeks gestation of pregnancy; Z37.0 Single live birth
CPT/HCPCS: 01961; 36415; 64488; 76942; 82565; 84450; 84460; 84520; 85018; 85025; 85027; 86592; 86850; 86870; 86880; 86900; 86901; 88307; A4314; A9270; J0665; J0666; J0690; J1100; J1650; J1885; J2371; J2405; J2590; J7120

== ENCOUNTER 2024-11-12 12:26 | Outpatient (CLI) | payer BC, SELFPAY | END 2024-11-12 12:27 | disposition home or self-care (01) | LOC: LKVREF 12:26 | PROVIDERS: Visit Provider Family Medicine | DX: O86.00 Infection of obstetric surgical wound, unspecified (principal); B95.62 Methicillin resistant Staphylococcus aureus infection as the cause of diseases classified elsewhere | CPT/HCPCS: 87070; 87186 ==

== ENCOUNTER 2024-11-25 14:43 | Outpatient (CLI) | payer BC, SELFPAY | END 2024-11-25 14:44 | disposition home or self-care (01) | PROVIDERS: Visit Provider Obstetrics & Gynecology | DX: Z22.322 Carrier or suspected carrier of Methicillin resistant Staphylococcus aureus (principal) | CPT/HCPCS: 87081 ==

== ENCOUNTER 2024-12-08 10:10 | Outpatient (CLI) | payer BC, SELFPAY ==
[2024-12-14 08:57] LABS: HPV Source Cervical; HPV, High Risk by TMA Not Detected
== END 2024-12-08 10:11 | disposition home or self-care (01) ==
PROVIDERS: Midwife; Visit Provider Obstetrics & Gynecology
DX: Z22.322 Carrier or suspected carrier of Methicillin resistant Staphylococcus aureus (principal); Z12.4 Encounter for screening for malignant neoplasm of cervix; Z11.51 Encounter for screening for human papillomavirus (HPV)
CPT/HCPCS: 87081; 87624; 87625; 88141; 88142

== ENCOUNTER 2025-02-07 10:10 | Outpatient (CLI) | payer BC, SELFPAY | END 2025-02-07 10:11 | disposition home or self-care (01) | LOC: NFLDREF 02-09 17:20 | PROVIDERS: Visit Provider Internal Medicine Nephrology | DX: R80.9 Proteinuria, unspecified (principal); Z13.0 Encounter for screening for diseases of the blood and blood-forming organs and certain disorders involving the immune mechanism | CPT/HCPCS: 80069; 82043; 82570; 82728; 83540; 83550 ==

== ENCOUNTER 2025-02-13 09:05 | Outpatient (CLI) | payer BC, SELFPAY | END 2025-02-13 09:06 | disposition home or self-care (01) | LOC: NFLDREF 02-14 13:26 | PROVIDERS: Visit Provider Internal Medicine Nephrology | DX: R80.9 Proteinuria, unspecified (principal) | CPT/HCPCS: 82570; 84156 ==

== ENCOUNTER 2025-03-08 10:17 | Outpatient (CLI) | payer BC, SELFPAY | END 2025-03-08 10:18 | disposition home or self-care (01) | PROVIDERS: Visit Provider Physician Assistant Medical | DX: L50.9 Urticaria, unspecified (principal); R53.83 Other fatigue | CPT/HCPCS: 80053; 82728; 82784; 84439; 84443; 84481; 86231; 86258; 86364; 86376 ==